=== PATIENT | male | born 1985 | race Caucasian/White ===

== ENCOUNTER 2021-03-27 10:46 | Emergency (ER) | payer OTHER ==
--- NOTE | 2021-03-27 11:24 | EDM.PDOC ---
ED HPI GENERAL MEDICAL PROBLEM - General Chief Complaint: Skin Complaint Stated Complaint: [id number] FELL A FEW DAYS AGO LEFT LEG DOTS Time Seen by Provider: 03/27/21 11:22 Source of Information: Reports: Patient, RN, RN Notes Reviewed History Limitations: Reports: No Limitations - History of Present Illness INITIAL COMMENTS - FREE TEXT/NARRATIVE: Joaquin is a 35 y/o male who presents to the ED via personal vehicle with complaints of petechia surrounding a wound on his left blunt. The patient reports three days ago he scraped his left anterior lower leg on a wooden deck. Additionally, he sprained his left ankle at the same time, which has bruising and swelling to the lateral aspect of the joint. The patient has been cleaning his wound with hydrogen peroxide BID and applying Neosporin. The patient reports increase in redness surrounding the wound and now notes petechia to the lower lateral aspect of the wound which is causing him concern. He denies fever, shaking chills, palpitations, nausea, vomiting, diarrhea, increase in pain, or increase in drainage. The patient reports his tetanus vaccine is up to date. - Related Data Allergies Allergy/AdvReac Type Severity Reaction Status Date / Time seasonal Allergy Other Uncoded 03/27/21 11:07 Home Meds: Home Meds Loratadine [Claritin] 10 mg PO DAILY 03/27/21 [History] Multivitamin [Multi-Day Vitamins] 1 tab PO DAILY 03/27/21 [History] Sertraline [Zoloft] 100 mg PO DAILY 03/27/21 [History] traZODone 50 mg PO DAILY PRN 03/27/21 [History] Past Medical History HEENT History: Reports: Impaired Vision Other HEENT History: wears glasses Cardiovascular History: Reports: None Respiratory History: Reports: None Gastrointestinal History: Reports: None Genitourinary History: Reports: None Musculoskeletal History: Reports: None Neurological History: Reports: None Psychiatric History: Reports: Anxiety, Depression Endocrine/Metabolic History: Reports: None Hematologic History: Reports: None Immunologic History: Reports: None Oncologic (Cancer) History: Reports: None Dermatologic History: Reports: None - Infectious Disease History Infectious Disease History: Reports: Chicken Pox - Past Surgical History Head Surgeries/Procedures: Reports: None Social & Family History - Tobacco Use Tobacco Use Status *Q: Never Tobacco User Second Hand Smoke Exposure: No - Caffeine Use Caffeine Use: Reports: Coffee - Recreational Drug Use Recreational Drug Use: No ED ROS GENERAL - Review of Systems Review Of Systems: Comprehensive ROS is negative, except as noted in HPI. ED EXAM, SKIN/RASH Exam: See Below Exam Limited By: No Limitations General Appearance: Alert, No Apparent Distress Eye Exam: Bilateral Eye: EOMI, Normal Inspection, PERRL (3mm) Ears: Normal External Exam, Hearing Grossly Normal Nose: Normal Inspection, Normal Mucosa, No Blood Throat/Mouth: Normal Inspection, Normal Lips, Normal Teeth, Normal Gums, Normal Oropharynx, Normal Voice, No Airway Compromise Head: Atraumatic, Normocephalic Neck: Normal Inspection, Supple, Non-Tender, Full Range of Motion Respiratory/Chest: No Respiratory Distress, Lungs Clear, Normal Breath Sounds, No Accessory Muscle Use, Chest Non-Tender Cardiovascular: Normal Peripheral Pulses, Regular Rate, Rhythm, No Edema, No Gallop, No JVD, No Murmur, No Rub Peripheral Pulses: 1+: Posterior Tibial (L), Posterior Tibial (R), 2+: Radial (L), Radial (R), Dorsalis Pedis (L), Dorsalis Pedis (R) GI/Abdominal: Normal Bowel Sounds, Soft, Non-Tender, No Distention, No Abnormal Bruit, No Mass, Pelvis Stable (Male) Exam: Deferred Rectal (Males) Exam: Deferred Back Exam: Normal Inspection, Full Range of Motion Extremities: No Pedal Edema, Normal Capillary Refill, Joint Swelling (To left lateral ankle), Leg Pain (To wound on left anterior lower leg), Limited Range of Motion (To left lateral ankle), Increased Warmth (Surrounding wound of left anterior lower leg), Redness (Surrounding wound on left anterior lower leg). No: Mottled, Pallor Neurological: Alert, Oriented, CN II-XII Intact, Normal Cognition, No Motor/Sensory Deficits, Abnormal Gait (Mild left limp) Psychiatric: Normal Affect, Normal Mood Skin: Warm, Dry, Ecchymosis (To left lateral ankle), Erythema (Surrounding wound on left anterior lower leg), Wound/Incision (See above). No: Jaundice, Mottled, Pallor Location, Skin: Lower Extremity, Left Characteristics: Erythematous Associated features: Warmth, Tenderness, Swelling, Inflammation, Crusting. No: Weeping Course - Vital Signs Last Recorded V/S: Last Vital Signs Temp 97.1 F 03/27/21 11:00 Pulse 73 03/27/21 11:00 Resp 16 03/27/21 11:00 BP 141/89 H 03/27/21 11:00 Pulse Ox 100 03/27/21 11:00 - Re-Assessments/Exams Free Text/Narrative Re-Assessment/Exam: 03/27/21 Findings of examination reviewed with patient. Will treat cellulitis with Augmentin. Discussed supportive wound cares as well as red flag signs and symptoms which would warrant reevaluation. Patient verbalized understanding and agreement with the plan of care. Departure - Departure Time of Disposition: 12:20 Disposition: Home, Self-Care 01 Condition: Good Clinical Impression: Left ankle sprain Qualifiers: Encounter type: initial encounter Involved ligament of ankle: other ligament Qualified Code(s): S93.492A - Sprain of other ligament of left ankle, initial encounter Cellulitis Qualifiers: Site of cellulitis: extremity Site of cellulitis of extremity: lower extremity Laterality: left Qualified Code(s): L03.116 - Cellulitis of left lower limb - Discharge Information *PRESCRIPTION DRUG MONITORING PROGRAM REVIEWED*: Not Applicable *COPY OF PRESCRIPTION DRUG MONITORING REPORT IN PATIENT CALEB: Not Applicable Instructions: Cellulitis, Adult Referrals: PCP,Not In Area [Primary Care Provider] - Forms: ED Department Discharge Additional Instructions: Rx: Augmentin 1.) Take all of your antibiotic until gone, even as symptoms improve. 2.) Keep wound clean and dry; no need to keep it covered unless draining. 3.) Follow up with primary care provider, or return to the emergency department, with any increase in fever, shaking chills, redness, pain, swelling, or drainage to wound. Sepsis Event Note (ED) - Evaluation Sepsis Screening Result: No Definite Risk
== END 2021-03-27 12:34 | disposition home or self-care (01) ==
LOC: DL.ED 10:46
DX: S93.492A Sprain of other ligament of left ankle, initial encounter (principal); L03.116 Cellulitis of left lower limb; Z91.048 Other nonmedicinal substance allergy status; X50.1XXA Overexertion from prolonged static or awkward postures, initial encounter; Y92.828 Other wilderness area as the place of occurrence of the external cause
CPT/HCPCS: 99283